=== PATIENT | male | born 1965 | race Caucasian/White ===

== ENCOUNTER 2017-09-07 13:25 | Emergency (ER) | payer BC, OTHER ==
[~2017-09-07] VITALS: Ht 185.4 cm; Wt 75.0 kg
[2017-09-07 13:29] VITALS: Ht 185.4 cm; Wt 75.0 kg
[2017-09-07] MEDS ORDERED: FAMOTIDINE 20 MG TAB PO ONE (14:30)
[2017-09-07] MEDS ORDERED: DEXAMETHASONE 10 MG/ML 1 ML INJ IM ONE (14:30)
[2017-09-07] MEDS ORDERED: FAMO-96 PO (14:32)
--- NOTE | 2017-09-07 14:36 | ERD ---
ER Documentation Chief Complaint Chief Complaint Rash x 4 days, head and neck HPI 52-year-old male with history of hyperlipidemia, no known allergies comes to the emergency department with a pruritic rash that started 4 days ago around his head and scalp and going to his legs as well. The patient states that it improved with Benadryl which he took just prior to arrival today. There is itchiness but no pain, no fevers or chills. He has not tried any new foods, medications, lotions or creams. He did state that he got an MMR vaccination with a hep B booster and flu shot just prior to this but he has received the shots that previously. He denies any shortness breath, facial swelling, chest pain, trouble swallowing. ROS All systems reviewed and are negative except as per history of present illness. Medications Home Meds Active Scripts Famotidine* (Pepcid*) 20 Mg Tablet, 20 MG PO BID for 4 Days, TAB Prov:KATELYNN WONG PA-C 09/07/17 Allergies Allergies: Coded Allergies: No Known Allergy (Unverified , 09/07/17) Physical Exam Vitals Vital Signs Date Time Temp Pulse Resp B/P Pulse Ox O2 Delivery O2 Flow Rate FiO2 09/07/17 13:29 97.8 83 20 167/88 99 Physical Exam General: Well-developed, well-nourished. The patient appears in no acute distress. HEENT: Head is normocephalic, atraumatic. No scleral icterus. No angioedema. Neck: Supple. Nontender. Lungs: Clear to auscultation. Normal air movement. Heart: Regular rate and rhythm. S1 and S2 are normal. No murmurs, gallops, or rubs. Abdomen: Soft, nontender, nondistended. Bowel sounds are normoactive. Extremities: No clubbing or cyanosis. Normal pulses. Moving extremities x 4. No weakness. Neurologic: Alert and oriented 3. No focal deficits. Skin: Erythematous rash that appear hive-like across the scalp, behind the neck , and anterior neck, and legs. Results 24 hrs Current Medications Medications (Trade) Dose Ordered Sig/Toyn Route PRN Reason Start Time Stop Time Status Last Admin Dose Admin Dexamethasone (Decadron) 10 mg ONCE ONCE IM 09/07/17 14:30 09/07/17 14:31 DC Famotidine (Pepcid) 20 mg ONCE ONCE PO 09/07/17 14:30 09/07/17 14:31 DC Procedures/MDM ED COURSE: Patient received Decadron 10 mg IM and Pepcid 20 mg p.o. [employer]-year-old male comes in with allergic reaction, that appears to be mild. No signs of respiratory distress, angioedema. Patient's allergic symptoms have stabilized while they have been evaluated in the department without evidence of persistent systemic reaction. Patient is healthy and capable of treating and responding to rebound reactions. Patient appropriate for outpatient allergy work up and treatment. Patient's blood pressure was elevated (>120/80) but appears stable without evidence of hypertension emergency or urgency. The patient was counseled about the risks of hypertension and urged to pursue outpatient monitoring and therapy within a week with their primary care physician. Departure Diagnosis: Primary Impression: Rash Condition: Good Patient Instructions: Allergic Reaction, Other (General) KATELYNN WONG PA-C Sep 07, 2017 14:36
[2017-09-07 15:17] VITALS: BP 111/73; PULSE 73
[2017-09-10] MEDS ORDERED: MULTI PO (00:32)
[2017-09-10] MEDS ORDERED: TAMS0.4C2 PO (00:32)
[2017-09-10] MEDS ORDERED: FLUO20CA22 PO (00:32)
[2017-09-10] MEDS ORDERED: ATOR10TA65 PO (00:32)
== END 2017-09-07 15:17 | disposition home or self-care (01) ==
LOC: FTE 13:25
DX: R21 Rash and other nonspecific skin eruption (principal)
CPT/HCPCS: 96372; 99284; J1100

== ENCOUNTER 2017-09-10 01:12 | Inpatient (IN) | END 2017-09-13 18:29 | disposition home or self-care (01) | DRG 329 ==

== ENCOUNTER 2017-12-22 09:41 | Inpatient (IN) | END 2017-12-27 18:13 | disposition home or self-care (01) | DRG 337 ==